=== PATIENT | male | born 1985 | race Caucasian/White ===

== ENCOUNTER 2018-04-08 13:38 | Emergency (ER) | payer BC, SELFPAY ==
[2018-04-08 14:11] VITALS: BP 139/84; PULSE 80; RESP 16; TEMP 36.8; O2SAT 98
[2018-04-08 15:19] VITALS: BP 119/73; PULSE 83; RESP 16; O2SAT 98
--- NOTE | 2018-04-08 15:24 | DI.RAD_ITS ---
SYMPTOMS/DIAGNOSIS: SNOWBOARDING ACCIDENT, ? BROKEN RIB PA AND LATERAL CHEST AND LEFT RIBS: PA and lateral chest and four additional views of the ribs were obtained. The heart is not enlarged and the lungs are clear. No pleural effusion or pneumothorax identified. No rib fracture seen.
--- NOTE | 2018-04-08 15:25 | ED.GENADUL_ITS ---
Discharge Plan Disposition Patient Disposition: HOME Condition: Fair Discharge Details Chief Complaint: Trauma Clinical Impression: Chest wall contusion Reason For Visit: broken rib? Primary Care Provider: Elisabet Guevara ED Provider: Veronica Hoang Home Meds and New Rx's Prescriptions: New ibuprofen 600 mg tablet 600 mg PO QID PRN (Reason: pain) Qty: 20 RF: 0 Discharge Instructions Instructions: Contusion in Adults (ED) Additional Instructions: Encourage hydration. Tylenol and/or ibuprofen as needed for discomfort. Encourage deep breathing and frequent ambulation to help open your lungs and prevent pneumonia. You may try topical options such as Lidoderm patch or Salonpas patches to help with discomfort. If you develop increased pain, shortness of breath, difficulty breathing, abdominal pain or other new/worsening symptoms please seek care urgently once again. Follow-up with primary care in 1-2 week if symptoms not improved Referrals: Elisabet Guevara MD [Primary Care Provider] - Discharge Data Discharge Date/Time-TO BE ENTERED AT DEPARTURE: 04/08/18 16:56 Medical Decision Making Patient 32-year-old male presenting today with chief complaint of left anterior chest wall pain after fall snowboarding today. States that he cannot manage falling forward. He indicates the left lower anterior ribs as area of his discomfort. States that initially, he felt slightly lightheaded he was concerned he may have puncture wound. Denies striking his head. No loss of consciousness. Was helmeted. Denies any headache, neck pain or back pain. No flank pain. Denies any nausea or vomiting. Denies any pain in his abdomen On exam, pain is localized to the left anterior lower ribs. No pain in the left upper quadrant. No CVA tenderness. No pain with movement of his back. Lungs are clear in all leroy. Abdomen soft nontender. No discoloration or evidence of trauma will obtain left-sided rib series to evaluate X-ray reviewed by radiologist no acute abnormalities noted Discussed the findings with patient. Advised chest wall contusion. Encouraged hydration. Encourage deep breathing. Discussed new/worsening symptoms when to seek care urgently once again. Patient lives locally and is able to return if she has recurrence or worsening of symptoms. All the questions and concerns were addressed and he is in agreement this plan HPI General Mode of arrival: ambulatory . Date/Time Provider Initiated Documentation: 04/08/18 15:18 . Limitations to Documentation: no limitations . Information obtained by: patient and family . History of Present Illness 32 year old M presents to the emergency department with the chief complaint of left anterior chest wall pain after fall, described as moderate, with intensity rated at 6. Quality is described as aching, and is localized to the chest. Patient reports no radiation. Patient started experiencing this hour(s) and it has been constant. Immobilization improves symptom(s), Movement worsens symptoms . Patient notes denies cough, diaphoresis, fever/chills, headaches, nausea/vomiting, rash, shortness of breath and syncope. Patient did receive the following treatments prior to arrival, none Related Data Home Medications Medication Instructions Recorded Confirmed ibuprofen 600 mg PO QID PRN #20 tab 04/08/18 Previous Rx's Medication Instructions Recorded ibuprofen 600 mg PO QID PRN #20 tab 04/08/18 Allergies Allergy/AdvReac Type Severity Reaction Status Date / Time No Known Allergies Allergy Unverified 02/26/13 02:59 General Stated Complaint: Trauma DC: 3 Review of Systems Constitutional Reports as per HPI, Denies chills, Denies fever(s), Denies headache(s), Denies lethargy and Denies poor appetite Eyes Denies change in vision ENT Denies headache(s) Cardiovascular Reports as per HPI, Denies dyspnea and Denies dyspnea on exertion Respiratory Denies dyspnea, Denies dyspnea on exertion and Denies wheezing Gastrointestinal Reports as per HPI, Denies abdominal pain, Denies diarrhea, Denies nausea and Denies vomiting Genitourinary Denies system reviewed and no additional complaints, except as docu (denies change in urinary habits) Musculoskeletal Reports as per HPI and Denies back pain Integumentary/Breasts Reports as per HPI and Denies rash Neurologic Denies headache(s) Allergic/Immunologic Denies wheezing FORMERLY [facility], 1928–1983 Social History Smoking/Tobacco Use Status: Current every day Exam Const General: cooperative, healthy appearing, comfortable, no acute distress and well developed Nutritional Appearance: average body habitus and well nourished Orientation: alert, awake and oriented x3 HENMT Head: normal to inspection Ears: hearing grossly normal bilaterally Mouth: moist mucous membranes Chest Chest: normal inspection of the chest, normal palpation of entire chest wall, no crepitus, localized rib tenderness with anteroposterior compression (over left anterior 8 and 9 ribs) and tenderness Resp Effort & Inspection: normal respiratory effort, able to speak in complete sentences and no respiratory distress Auscultation: clear to auscultation bilaterally, no rales, no rhonchi and no wheezes Cardio Rate: regular rate Rhythm: regular rhythm Heart Sounds: S1 normal and S2 normal GI Inspection: normal to inspection, no edema and non-distended Palpation: soft, no hepatosplenomegaly, not firm, no guarding, not rigid and nontender Auscultation: normal bowel sounds Back/Spine/Pelvis Back: no CVA tenderness Thoracic/Lumbar Spine: thoracic and lumbar spine normal to inspection Skin General skin exam: no rashes or lesions noted Trauma: no lacerations or abrasions Neuro General: alert, awake and oriented x3 Cognition: normal cognition Speech: speech normal Gait: normal gait Extrem General: normal to inspection, normal capillary refill, no pedal edema, no calf tenderness and normal gait Psych Appearance: grossly normal and well kempt Mental Status: mental status grossly normal Speech and Movement: speech and movement normal Course Vital Signs Temperature 36.8 C 04/08/18 14:11 Pulse 80 04/08/18 14:11 Respiratory Rate 16 04/08/18 14:11 Blood Pressure 139/84 04/08/18 14:11 Pulse Oximetry 98 04/08/18 14:11 Temperature 36.8 C 04/08/18 14:11 Pulse 83 04/08/18 15:19 Respiratory Rate 16 04/08/18 15:19 Respiratory Effort Accessory Muscle Use 04/08/18 14:16 Blood Pressure 119/73 04/08/18 15:19 Pulse Oximetry 98 04/08/18 15:19 Oxygen Delivery Method Room Air 04/08/18 15:19 Oxygen Flow Rate 0 04/08/18 15:19 Pain Level 6 04/08/18 14:11
[2018-04-08 16:55] VITALS: BP 123/77; PULSE 69; RESP 16; TEMP 36.8; O2SAT 96
== END 2018-04-08 16:56 | disposition home or self-care (01) ==
PROVIDERS: Emergency Provider Physician Assistant; PCP Family Medicine
DX: S20.212A Contusion of left front wall of thorax, initial encounter (principal); V00.311A Fall from snowboard, initial encounter
CPT/HCPCS: 99283; 71046; 71100; 99282

== ENCOUNTER 2019-11-18 15:49 | Outpatient (CLI) | payer BC, SELFPAY ==
--- NOTE | 2019-11-18 14:15 | DI.RAD_ITS ---
EXAM: XR SHOULDER LT COMPLETE 2+V CLINICAL HISTORY: L shoulder pain TECHNIQUE: COMPARISON: No exams were available for comparison FINDINGS: Three views were obtained. No bony or soft tissue abnormality seen. IMPRESSION:
== END 2019-11-18 16:09 ==
PROVIDERS: PCP Family Medicine; Referring Provider Family Medicine; Visit Provider Physician Assistant
DX: M25.512 Pain in left shoulder (principal)
CPT/HCPCS: 73030

== ENCOUNTER 2020-07-04 12:57 | Emergency (ER) | payer BC, SELFPAY ==
[2020-07-04] VITALS (50 sets, daily range): BP systolic 129–174; BP diastolic 66–112; PULSE 60–116; RESP 19–29; TEMP 37; O2SAT 93–98
--- NOTE | 2020-07-04 | DI.CT_ITS ---
EXAM: CT THORACIC LUMBAR SPINE REC CLINICAL HISTORY: requested by [facility] for pt transfered earlier today. TECHNIQUE: COMPARISON: No exams were available for comparison FINDINGS: Thoracic spine: There are fractures of the left 1st, 2nd, and 3rd ribs posteriorly noted in this pantera ent with left-sided pneumothorax and lung findings as described on the conventional CT scan report.. Thoracic spine: In the thoracic spine there are no compression fractures compression fractures. Some central disc ca lcification is noted 2 levels. Lumbar spine: No compression fractures. There is a finding on the anterosuperior aspect of L4 which has the appear ance of a limbus vertebra. No significant disc space narrowing. No jumped facets. No fractures. N o sacral fractures. 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 Recommend correlation with site of tenderness. Fractures of the left 1st, 2nd, and 3rd ribs. Ipsilateral pneumothorax another lung findings as desc ribed on the other report.
--- NOTE | 2020-07-04 13:15 | DI.CT_ITS ---
EXAM: CT HEAD CERVICAL SPINE WO CLINICAL HISTORY: snowboard injury, confusion. TECHNIQUE: Imaging Protocol: Axial computed tomography images with coronal and sagittal reformatted images were created and reviewed COMPARISON: No exams were available for comparison FINDINGS: BRAIN: There are no skull fractures nor fluid in the visualized paranasal sinuses. There is no evidence of intracranial hemorrhage, mass effect, or shift of midline structures. There are no extra-axial fluid collections. The ventricles are not enlarged or shifted and there is no blo od within the ventricular system nor within the basal cisterns. CERVICAL SPINE: There is a left lung pneumothorax. There are fractures of the left 1st, 2nd, and 3rd ribs which are partially included in the field of view. There is no evidence of fracture of the cervical vertebrae. No listhesis. No jumped facets. Degene rative disc disease evident at C5-6 and C6-7 levels.. No significant prevertebral soft tissue swelli ng. There is no significant facet joint malalignment. No significant osseous lesions evident. IMPRESSION: No acute intracranial findings on this noninfused CT scan of the brain. No evidence of cervical spine fracture, malalignment, nor acute compromise of the cervical spinal can al. However, there are fractures of at least the 1st 3 ribs on left side and a left pneumothorax is noted . RADIATION DOSE DELIVERED: 1,324.33mGy.cm Total DLP DATA REPOSITORY: All CT scans at this facility are submitted to the National Radiology Data Registry (NRDR) Dose Index Registry (DIR) with the [employer] (ACR). RADIATION OPTIMIZATION: All CT scans at this facility use at least one of these dose optimization te chniques: automated exposure control; mA and/or kV adjustment per patient size (includes targeted exa ms where dose is matched to clinical indication); or iterative reconstruction.
--- NOTE | 2020-07-04 13:15 | RT.EKG_ITS ---
APPROVED REPORT Exam: Resting ECG Patient Location: E HR:72 bpm ECG Measurements Heart Rate 72 AXIS MT 148 P 28 QRSd 107 QRS 70 QT 381 T 31 QTc 407 Conclusion Sinus rhythm... Atrial premature complexes
--- NOTE | 2020-07-04 13:30 | DI.CT_ITS ---
EXAM: CT CHEST/ABD/PEL W CLINICAL HISTORY: chest pain post fall yesterday snowboarding. TECHNIQUE: Imaging Protocol: Axial computed tomography images with coronal and sagittal reformatted images were created and reviewed CONTRAST MATERIAL: Intravenous: Omnipaque 350 Contrast volume:100 ml Oral: None COMPARISON: No exams were available for comparison FINDINGS: CHEST: LUNGS: There is a large left pneumothorax, approximately 60 percent. There fractures of the 1st, 2nd , and 3rd left ribs.. Also infiltrate and pleural fluid the left lung base. Opposite-right lung is relatively clear, with minimal increased markings in the posterior basal segment of the right lower l obe. No pleural effusion. No obvious pneumothorax on the right side. No focal findings in the main stem bronchi. Density in the right side of the trachea is probably mucus. MEDIASTINUM: There is no hilar nor mediastinal adenopathy. No prominent mediastinal hematoma. CARDIAC: Heart size is normal. There is no pericardial effusion.Thoracic aorta appears intact. OSSEOUS: Fractures of the 1st 2nd 3rd ribs on the left side. No sternal nor clavicular or scapular f ractures. No fractures of the thoracic vertebral bodies. . ABDOMEN: There is no ascites. No evidence of mesenteric nor bowel wall hematoma. No evidence of significant trauma to the spleen, liver, and kidneys. Abdominal aorta is intact. LIVER: There are no focal hepatic lesions nor dilatation of intrahepatic ducts. GALLBLADDER/BILIARY: No obvious gallbladder pathology. CBD is not dilated. PANCREAS: No evidence of pancreatic mass nor dilatation of the pancreatic duct. SPLEEN: Spleen is not enlarged. There are no intrasplenic lesions. Splenic and portal veins are sanabria nt. ADRENALS: There are no significant adrenal masses. KIDNEYS: No calculi nor hydronephrosis. No solid renal masses. No cysts evident. ABDOMINAL AORTA: Abdominal aorta is not enlarged. LYMPH NODES: There is no retroperitoneal nor paraaortic adenopathy. ABDOMINAL WALL/GI: No evidence of significant anterior abdominal wall hernia. No bowel obstruction. PELVIS: LYMPH NODES: There is no intrapelvic nor inguinal adenopathy. GI: No evidence of appendicitis.No evidence of sigmoid diverticulitis. URINARY BLADDER: No calculi nor masses evident REPRODUCTIVE: Age-appropriate OSSEOUS: Anterosuperior L4 vertebral body exhibits findings which are probably limbus vertebra. IMPRESSION: 1. No acute intra-abdominal trauma sequelae. No evidence of ascites/hemoperitoneum. 2. 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 Nevertheless, correlation with site of tenderness is recommended. This study 1st read by [facility]. RADIATION DOSE DELIVERED: 1,244.2mGy.cm Total DLP DATA REPOSITORY: All CT scans at this facility are submitted to the National Radiology Data Registry (NRDR) Dose Index Registry (DIR) with the [employer] (ACR). RADIATION OPTIMIZATION: All CT scans at this facility use at least one of these dose optimization te chniques: automated exposure control; mA and/or kV adjustment per patient size (includes targeted exa ms where dose is matched to clinical indication); or iterative reconstruction.
[2020-07-04 13:48] LABS: Abs Immature Grans 0.04 10^3/uL (0.0-0.06); Absolute Basophil Count 0.03 10^3/uL (0.0-0.2); Absolute Eosinophil Count 0.03 10^3/uL (0.0-0.7); Absolute Lymphocyte Count 1.76 10^3/uL (1.2-3.4); Absolute Monocyte Count 1.12 10^3/uL (0.1-0.8); Absolute Neutrophil Count 7.53 10^3/uL (1.2-6.7); Basophils % 0.3; Eosinophils % 0.3; HCT 41.7 % (40.0-50.0); HGB 14.3 g/dL (13.5-17.5); Immature Grans % 0.4; Lymphocytes % 16.7; MCH 30.6 pg (27.0-33.0); MCHC 34.3 % (32.0-36.0); MCV 89.3 fL (80-95); MPV 8.7 fL (8.0-11.0); Monocytes % 10.7; Neutrophils % 71.6; Nucleated RBC 0 %; Platelet Count 277 10^3/uL (130-400); RBC 4.67 10^6/uL (4.36-5.78); RDW 11.8 % (11.8-14.1); RDW-SD 38.3 fL; WBC 10.51 10^3/uL (4.4-10.8)
[2020-07-04 14:00] LABS: ALT 37 U/L (16-63); AST 45 U/L (15-37); Alkaline Phosphatase 72 U/L (46-116); Anion Gap 8.2 mmol/L (3-11); BUN 15 mg/dL (7-18); Bilirubin, Total 0.8 mg/dL (0.2-1.0); CO2 26.8 mmol/L (21.0-32.0); Calcium 8.8 mg/dL (8.5-10.1); Chloride 103 mmol/L (98-107); Glucose 108 mg/dL (74-106); Sodium 138 mmol/L (136-145); Total Protein 7.4 g/dL (6.4-8.2)
--- NOTE | 2020-07-04 14:24 | W.ED.GENAD ---
Discharge Plan Disposition Patient Disposition: [facility] Condition: Stable Discharge Details Clinical Impression: Pneumothorax on left Primary Care Provider: Gaby Reveles ED Provider: Molina Bird Home Meds and New Rx's Prescriptions: No Action dextroamphetamine-amphetamine [Adderall XR] 10 mg capsule,extended release 24hr 10 mg PO DAILY RF: 0 ibuprofen 600 mg tablet 600 mg PO QID PRN (Reason: pain) Qty: 20 RF: 0 Discharge Data Discharge Date/Time-TO BE ENTERED AT DEPARTURE: 07/04/20 18:08 Medical Decision Making <EDMUND Suarez - Last Filed: 07/07/20 08:20> Patient with stable vitals initially, diminished lung sounds on lung CT shows 50 to 60% hemothorax on left, 5% on the right with first and second posterior nondisplaced rib fractures No intra-abdominal pathology or CT head and cervical spine abnormality is Case discussed with Dr. Guillaume, surgeon on-call and she prefers that we transfer to higher level of care Dr. Tompkins, trauma surgeon at [facility] have accepted patient in transfer but asked that we please place a thoracotomy tube Patient is agreeable to transfer, he is alert, oriented, of decisional capacity at time of my evaluation and reevaluation, I confirmed prior to removing cervical collar Hemodynamically stable, pending chest tube placement, signed out to my attending physician pending chest x-ray and transport AST 45, no acute abnormalities Differential Diagnosis Differential Diagnosis: Pneumothorax, rib fractures, liver laceration, subdural hematoma Medical Records Medical records reviewed: Yes I reviewed the patient's medical records. <Molina Bird MD - Last Filed: 07/04/20 18:28> Received signout on the patient from Ms. Vallecillo, please see her note regarding details of his presentation, exam, plan of care. I agree with her plan including surgical consultation for chest tube placement, and transfer versus admission given traumatic injury to the chest. HPI <EDMUND Suarez - Last Filed: 07/07/20 08:20> This 40-year-old gentleman with history of ADHD presents with report of follow-up sobering yesterday afternoon. He was wearing a helmet when he went over a jump, he is unsure as to how he landed but has had, his partner told him that he did have loss of consciousness. He was able [place] reportedly. He denies any current headache. His partner reports that he has been confused . When asked how so, she states that he has been slowed in his responses which is unusual for him. He states that he felt weak this morning and has had worsening chest pain throughout the day. Patient denies any abdominal tenderness, history of coagulopathy, strength or sensation changes to extremities. He denies similar pain in the past. He denies any heart history. Pain is exacerbated with deep breathing reportedly. Denies any vomiting or blood in the stool. General Date/Time Provider Initiated Documentation: 07/04/20 13:22. Related Data Home Medications Medication Instructions Recorded Confirmed ibuprofen 600 mg PO QID PRN #20 tab 04/08/18 07/04/20 dextroamphetamine-amphetamine ER 10 mg PO DAILY 11/13/19 07/04/20 10 mg 24hr capsule,extend release Previous Rx's Medication Instructions Recorded ibuprofen 600 mg PO QID PRN #20 tab 04/08/18 Allergies Allergy/AdvReac Type Severity Reaction Status Date / Time No Known Allergies Allergy Verified 11/18/19 13:59 General Stated Complaint: Trauma DC: 2 <Molina Bird MD - Last Filed: 07/04/20 18:28> This 40-year-old gentleman with history of ADHD presents with report of follow-up sobering yesterday afternoon. He was wearing a helmet when he went over a jump, he is unsure as to how he landed but has had, his partner told him that he did have loss of consciousness. He was able to [place]board [place] the [place] reportedly. He denies any current headache. His partner reports that he has been confused . When asked how so, she states that he has been slowed in his responses which is unusual for him. He states that he felt weak this morning and has had worsening chest pain throughout the day. Patient denies any abdominal tenderness, history of coagulopathy, strength or sensation changes to extremities. He denies similar pain in the past. He denies any heart history. Pain is exacerbated with deep breathing reportedly. Denies any vomiting or blood in the stool. Review of Systems <EDMUND Suarez - Last Filed: 07/07/20 08:20> Narrative: Review of systems obtained x7 aside from where indicated in HPI PFSH <EDMUND Suarez - Last Filed: 07/07/20 08:20> Social History Smoking/Tobacco Use Status: Former Tobacco Use Smoking risk assessment performed?: Yes Drug use: Daily Substance use type: marijuana Current gender identity: male Do you feel safe in your relationship?: Yes Exam <EDMUND Suarez - Last Filed: 07/07/20 08:20> Const General: cooperative and no acute distress HENMT Other: No hemotympanum, uvula midline No visible signs of trauma Eyes Pupils: PERRL EOM: EOM intact bilaterally Neck Other: No midline tenderness, no visible sign of trauma Resp Effort & Inspection: normal respiratory effort and able to speak in complete sentences Cardio Rate: regular rate Rhythm: regular rhythm GI Other: No abdominal tenderness No CVA tenderness Back/Spine/Pelvis Other: No lumbar spine tenderness Neuro General: patient alert and patient oriented x3 Cranial Nerves: CN's II-XI intact bilaterally and PERRL Extrem General: normal to inspection Other: Neurovascularly intact distally Course <EDMUND Suarez - Last Filed: 07/07/20 08:20> Vital Signs Vital signs: Vital Signs Temperature 37 C 07/04/20 13:09 Pulse 66 07/04/20 13:09 Respiratory Rate 23 07/04/20 13:09 Blood Pressure 146/80 H 07/04/20 13:09 Pulse Oximetry 95 07/04/20 13:09 Temperature 37 C 07/04/20 13:09 Temperature Source Skin 07/04/20 13:09 Pulse 66 07/04/20 13:09 Respiratory Rate 23 07/04/20 13:09 Respiratory Effort Non-Labored 07/04/20 13:09 Blood Pressure 146/80 H 07/04/20 13:09 Blood Pressure Position Supine 07/04/20 13:09 Pulse Oximetry 95 07/04/20 13:09 Oxygen Delivery Method Room Air 07/04/20 13:09 Oxygen Flow Rate 0 07/04/20 13:09 Pain Level 10 07/04/20 13:09 Lab/Test Results Lab/Test Results: Laboratory Tests Range/Units 07/04/20 07/04/20 07/04/20 13:29 13:40 13:40 WBC (4.4-10.8) 10^3/uL 10.51 RBC (4.36-5.78) 10^6/uL 4.67 Hgb (13.5-17.5) g/dL 14.3 Hct (40.0-50.0) % 41.7 MCV (80-95) fL 89.3 MCH (27.0-33.0) pg 30.6 MCHC (32.0-36.0) % 34.3 RDW (11.8-14.1) % 11.8 Plt Count (130-400) 10^3/uL 277 MPV (8.0-11.0) fL 8.7 Immature Gran % 0.4 Neutrophils % 71.6 Lymphocytes % 16.7 Monocytes % 10.7 Eosinophils % 0.3 Basophils % 0.3 Nucleated RBC % % 0 Absolute Neutrophils (1.2-6.7) 10^3/uL 7.53 H Absolute Lymphocytes (1.2-3.4) 10^3/uL 1.76 Absolute Monocytes (0.1-0.8) 10^3/uL 1.12 H Absolute Eosinophils (0.0-0.7) 10^3/uL 0.03 Absolute Basophils (0.0-0.2) 10^3/uL 0.03 Sodium (136-145) mmol/L 138 Potassium (3.5-5.1) mmol/L 4.0 Chloride (98-107) mmol/L 103 Carbon Dioxide (21.0-32.0) mmol/L 26.8 Anion Gap (3-11) mmol/L 8.2 BUN (7-18) mg/dL 15 Creatinine (0.70-1.30) mg/dL 1.0 Estimated GFR/1.73 m2 (mL/min/1.73m2) >= 60.00 Glucose (74-106) mg/dL 108 H Calcium (8.5-10.1) mg/dL 8.8 Magnesium Cancelled Total Bilirubin (0.2-1.0) mg/dL 0.8 AST (15-37) U/L 45 H ALT (16-63) U/L 37 Alkaline Phosphatase (46-116) U/L 72 Total Protein (6.4-8.2) g/dL 7.4 Albumin (3.4-5.0) g/dL 4.0 Sign Out <EDMUND Suarez - Last Filed: 07/07/20 08:20> Sign Out Data: Sign Out Comment: pending thoracotomy tube/cxr and transfer to ER/ Dr Tompkins Last updated by Sarai Vallecillo PA at 07/04/20 17:04
[2020-07-04] MEDS: fentaNYL 100 MCG/2 ML VIAL 50 MCG IVP (14:40)
[2020-07-04] MEDS: Omnipaque 350 MG/ML 100 ML BTL IV (14:58)
--- NOTE | 2020-07-04 15:19 | DI.VRAD_ITS ---
PROCEDURE INFORMATION: Exam: CT Head Without Contrast Exam date and time: 07/04/2020 1:32 PM Age: 34 years old Clinical indication: Other: Snowboard injury, confusion TECHNIQUE: Imaging protocol: Computed tomography of the head without contrast. Radiation optimization: All CT scans at this facility use at least one of these dose optimization techniques: automated exposure control; mA and/or kV adjustment per patient size (includes targeted exams where dose is matched to clinical indication); or iterative reconstruction. COMPARISON: No relevant prior studies available. FINDINGS: Brain: Normal. No hemorrhage. Unremarkable white matter. No mass effect. Cerebral ventricles: No ventriculomegaly. Bones/joints: Unremarkable. No acute fracture. Paranasal sinuses: There is mild mucosal thickening in the bilateral frontal sinuses, anterior ethmoidal air cells, right greater than left. Mastoid air cells: The mastoid air cells are clear. Soft tissues: There is mild soft tissue swelling in anterior frontal scalp. IMPRESSION: No acute intracranial abnormality. PROCEDURE INFORMATION: Exam: CT Cervical Spine Without Contrast Exam date and time: 07/04/2020 1:32 PM Age: 34 years old Clinical indication: Other: Snowboard injury, confusion TECHNIQUE: Imaging protocol: Computed tomography images of the cervical spine without contrast. Radiation optimization: All CT scans at this facility use at least one of these dose optimization techniques: automated exposure control; mA and/or kV adjustment per patient size (includes targeted exams where dose is matched to clinical indication); or iterative reconstruction. COMPARISON: No relevant prior studies available. FINDINGS: Bones/joints: There is no acute fracture or subluxation. Craniocervical junction is normal. There is normal alignment. Vertebral body heights are maintained. Posterior elements are intact. Facets are normally located. Discs/Spinal canal/Neural foramina: There is mild narrowing of C5-C6 and C6-C7 intervertebral disc space. There is mild posterior osteophyte spurring at C5-C6. Prevertebral Space: There is no prevertebral and posterior paraspinal soft tissue swelling. Trachea: There is a minimal debris or mucous retention cyst within the trachea. Lungs: Lung apices are normal. Pleural spaces: There is a partially visualized pneumothorax in the left apical lung. Soft tissues: Unremarkable. IMPRESSION: 1. No acute fracture or subluxation of the cervical spine. 2. Partially visualized pneumothorax in the left lung. CT correlation is recommended. Dictated and Authenticated by: Levi Cavazos MD. Ordering:JOI Moon MD
--- NOTE | 2020-07-04 15:39 | DI.VRAD_ITS ---
Addendum created by Levi Cavazos DO on 07/04/2020 3:39:53 PM EDT: THIS REPORT CONTAINS FINDINGS THAT MAY BE CRITICAL TO PATIENT CARE. The findings were verbally communicated via telephone conference at 3:39 PM EDT on 07/04/2020 with Sarai Vallecillo. The findings were acknowledged and understood. Initial report created on 07/04/2020 3:38:54 PM EDT: PROCEDURE INFORMATION: Exam: CT Chest With Contrast; Diagnostic Exam date and time: 07/04/2020 2:48 PM Age: 34 years old Clinical indication: Injury or trauma; Fall; Upper; Blunt trauma (contusions or hematomas); Additional info: Snowboard injury, confusion TECHNIQUE: Imaging protocol: Diagnostic computed tomography of the chest with contrast. COMPARISON: CR XR ribs LT w PA lat chest 04/08/2018 3:37 PM FINDINGS: Lungs: See Pleural spaces finding. Pleural spaces: Pleural spaces and lungs: There is a large left pneumothorax, probably 50-60%. There is a layering mild hyperdense fluid in the left pleural cavity, reflecting hemothorax. There is overlying lung atelectasis of the left lower lung lobe and to a lesser extent left upper lobe. There is trace right pneumothorax , most pronounced anterior laterally. There is posterior atelectasis of the right lung . Heart: Heart is within normal limits in size and in the midline. Mediastinal space: There is mild debris in trachea. Aorta: Unremarkable. No aortic aneurysm. Lymph nodes: Unremarkable. No enlarged lymph nodes. Bones/joints: There is a nondisplaced fracture of the left 1st posterior rib (image 5 series 4). There is a nondisplaced fracture of the 2nd posterior left rib (image 7 series 4). Soft tissues: Unremarkable. IMPRESSION: 1. Large left pneumothorax, approximately 50-60% with mild hemothorax and associated atelectasis of the left lung, lower lobe greater than the upper lobe. There is no shift of the mediastinum , probably due to associated atelectasis in the left lung. 2. There is trace right pleural pneumothorax, less than 5%. 3. Nondisplaced fracture of posterior left 1st and the 2nd ribs. PROCEDURE INFORMATION: Exam: CT Abdomen And Pelvis With Contrast Exam date and time: 07/04/2020 2:48 PM Age: 34 years old Clinical indication: Injury or trauma; Fall; Upper; Blunt trauma (contusions or hematomas); Additional info: Snowboard injury, confusion TECHNIQUE: Imaging protocol: Computed tomography of the abdomen and pelvis with contrast. COMPARISON: CR XR ribs LT w PA lat chest 04/08/2018 3:37 PM FINDINGS: Liver: Normal. No mass. Gallbladder and bile ducts: Normal. No calcified stones. No ductal dilation. Pancreas: Normal. No ductal dilation. Spleen: Normal. No splenomegaly. Adrenal glands: Normal. No mass. Kidneys and ureters: Normal. No hydronephrosis. Stomach and bowel: There is diverticulosis of sigmoid and descending colon without acute inflammation. Appendix: No evidence of appendicitis. Intraperitoneal space: Unremarkable. No free air. No significant fluid collection. Vasculature: Unremarkable. No abdominal aortic aneurysm. Lymph nodes: Unremarkable. No enlarged lymph nodes. Urinary bladder: Unremarkable as visualized. Reproductive: Unremarkable as visualized. Bones/joints: There is a small avulsion fracture of the anterior tip of L4. The pelvic rim is intact. Soft tissues: Unremarkable. Other findings: Images are degraded due to motion. IMPRESSION: 1. Mildly degradation of images due to motion. 2. No acute intra-abdominal abnormality. No intra-abdominal hematoma. 3. Small avulsion fracture of the anterior superior endplate of L4. The pelvic rim is intact. Dictated and Authenticated by: Levi Cavazos MD. Ordering:JOI Moon MD
--- NOTE | 2020-07-04 16:41 | NUR.NOTE ---
Pt girlfriend allowed in to room with pt at triage, had stated pt was concussed and unable to answer questions. Pt is alert, oriented, able to make needs known. Advised girlfriend that we are not allowing visitors, and she would need to go wait in car. Stated she is concerned that pt is unable to advocate for himself and wanted to stay with pt. Again advised of visitor policy, that we could call her with any updates and questions. Sarai SHAFFER in agreement. in to update pt and girlfriend of plan, girlfriend exited ED to wait outside.
--- NOTE | 2020-07-04 16:45 | DI.RAD_ITS ---
EXAM: XR PORTABLE CHEST AP CLINICAL HISTORY: trauma. TECHNIQUE: 2D digital imaging was performed. COMPARISON: CR XR ribs LT w PA lat chest from 04/08/2018 CT scan earlier same date. FINDINGS: Compared to CT scan earlier today there has been interval placement of a large caliber left chest tub e and left lung appears mostly re-expanded with no obvious pneumothorax evident on this portable semi -upright view. Mild increased markings in left lung base. Heart and mediastinum are not shifted. No prominent infiltrates. No large pleural effusions. IMPRESSION: Left chest tube in place. Left lung is re-expanded. DATA REPOSITORY: RADIATION DOSE DELIVERED:
--- NOTE | 2020-07-04 17:00 | NUR.NOTE ---
Nursing Note: Chante [phone]
[2020-07-04] MEDS: Lactated Ringers 1,000 ML 150 ML IV (17:31)
--- NOTE | 2020-07-04 17:37 | W.SURGCON ---
Date of service: 07/04/20 Time of Service: 17:04 Assessment and Plan Assessment and plan (1) Traumatic pneumohemothorax: Status: Acute Assessment and plan: 1) chest tube in place, confirmed 2) keep to 20cm H20 Qualifiers: Encounter type: initial encounter Qualified Code(s): S27.2XXA - Traumatic hemopneumothorax, initial encounter (2) Multiple rib fractures involving first rib: Status: Acute Assessment and plan: 2/2 mechanism and multiple system injury, patient will transfer to trauma center History of Present Illness History of Present Illness Chief Complaint: chest pain Narrative: patient had fall while snowboarding yesterday. Painful at time, but worsening chest pain on the left and shortness or breath overnight into today. Patient c/o worsening pain with movement, worse with deep breath. Remaining still makes it better. no prior history. CT shows multiple rib fx and pneumo/hemothorax on L. Review of Systems Constitutional Constitutional: Denies fever(s), Denies headache(s) and Denies weight loss Eyes Eyes: Denies change in vision and Denies loss of vision ENT Ears, Nose, Mouth, and Throat: Denies abnormal hearing, Denies dizziness and Denies headache(s) Cardiovascular Cardiovascular: Reports as per HPI, Denies syncope, Denies rapid heart rate, Denies palpitations and Reports dyspnea Respiratory Respiratory: Reports pain on inspiration and Reports dyspnea Gastrointestinal Gastrointestinal: Denies abdominal pain and Denies diarrhea Genitourinary Genitourinary: Denies oliguria and Denies difficulty urinating Musculoskeletal Musculoskeletal: Denies deformity and Denies radiating pain into limb Integumentary/Breasts Skin/Breast: Denies rash and Denies skin ulcer Neurologic Neurologic: Denies abnormal hearing, Denies abnormal speech, Denies confusion, Denies dizziness, Denies syncope, Denies headache(s) and Denies loss of vision Psychiatric Psychiatric: Denies anxiety, Denies confusion and Denies depression Endocrine Endocrine: Denies palpitations Hematologic/Lymphatic Hematologic/Lymphatic: Denies easy bleeding and Denies easy bruising [facility] Social History Smoking/Tobacco Use Status: Former Tobacco Use Smoking risk assessment performed?: Yes Drug use: Daily Substance use type: marijuana Current gender identity: male Do you feel safe in your relationship?: Yes Exam Narrative Exam Narrative: NAD RRR S1S2 CTA R, Decreased L No joint deformity No extremity tenderness No cervical tenderness S/ND/NT abdomen Results Last Vital Signs Temp 98.6 F 07/04/20 13:09 Pulse 64 07/04/20 16:01 Resp 26 H 07/04/20 17:23 BP 130/72 07/04/20 16:01 Pulse Ox 98 07/04/20 17:23 Labs Result diagrams: 07/04/20 13:40 07/04/20 13:40 Labs: Laboratory Results - last 24 hr 07/04/20 07/04/20 07/04/20 13:29 13:40 13:40 WBC 10.51 RBC 4.67 Hgb 14.3 Hct 41.7 MCV 89.3 MCH 30.6 MCHC 34.3 RDW 11.8 Plt Count 277 MPV 8.7 Immature Gran % 0.4 Neutrophils % 71.6 Lymphocytes % 16.7 Monocytes % 10.7 Eosinophils % 0.3 Basophils % 0.3 Nucleated RBC % 0 Absolute Neutrophils 7.53 H Absolute Lymphocytes 1.76 Absolute Monocytes 1.12 H Absolute Eosinophils 0.03 Absolute Basophils 0.03 Sodium 138 Potassium 4.0 Chloride 103 Carbon Dioxide 26.8 Anion Gap 8.2 BUN 15 Creatinine 1.0 Estimated GFR/1.73 m2 >= 60.00 Glucose 108 H Calcium 8.8 Magnesium Cancelled Total Bilirubin 0.8 AST 45 H ALT 37 Alkaline Phosphatase 72 Total Protein 7.4 Albumin 4.0 Procedures Chest Tube Chest Tube 1: Chest tube location: Lateral Chest Size of tube: 24 Chest tube procedure: Yes betadine prep and sterile drapes applied Tube sutured to skin: Yes Sterile dressing applied: Yes Anesthesia: 1% Lidocaine w/ Epi Volume anesthetic (ml): 20 Incision made with: #11 blade Post procedure: sutured to skin and sterile dressing applied Osei of air heard: Yes Tube Drainage: fluid Amount of initial drainage (ml): 30 Post procedure CXR?: Yes Patient tolerated procedure: Yes Progress: patient tolerated procedure well, confirmed placement with CXR, patient to be transferred to [facility]
--- NOTE | 2020-07-04 17:41 | DI.VRAD_ITS ---
PROCEDURE INFORMATION: Exam: XR Chest Exam date and time: 07/04/2020 4:50 PM Age: 34 years old Clinical indication: Device placement; Chest tube TECHNIQUE: Imaging protocol: XR of the chest Views: 1 view. COMPARISON: CT CHEST/ABD/PEL W 07/04/2020 2:50 PM FINDINGS: Lungs and pleura: Lungs volumes are low. There has been interval placement of left chest tube in the basilar lung. There is probable pleural line in the left apical lung. There is no mass effect. Redemonstration of opacities in the left lower lung, probably reflecting pleural effusion and or atelectasis. Left lung volume is low. No radiographic pneumothorax is identified in the right lung. Heart/Mediastinum: No cardiomegaly. Bones/joints: Redemonstration of the nondisplaced fracture of posterior 2nd left rib. Soft tissues: Soft tissues are unremarkable. IMPRESSION: 1. Interval placement of the left chest tube which projects over left basilar hemithorax. There has been near resolution of left pneumothorax with questionable small pneumothorax in the left apical lung. Left lung volume is low with no mass effect on the mediastinum. 2. Opacities in the left lower lung reflect mild left pleural effusion with overlying atelectasis. Dictated and Authenticated by: Levi Cavazos MD. Ordering:JOI Moon MD
== END 2020-07-04 18:08 | disposition short-term general hospital (02) ==
PROVIDERS: Physician Assistant; Emergency Provider Emergency Medicine; PCP Family Medicine
DX: S27.2XXA Traumatic hemopneumothorax, initial encounter (principal); S22.42XA Multiple fractures of ribs, left side, initial encounter for closed fracture; W18.09XA Striking against other object with subsequent fall, initial encounter; Y93.23 Activity, snow (alpine) (downhill) skiing, snowboarding, sledding, tobogganing and snow tubing; R41.0 Disorientation, unspecified
CPT/HCPCS: 32551; 74177; 80053; 93005; 96361; 96374; 96375; 96376; 99253; 99285; 70450; 71045; 71260; 72125; 83735; 85025; 93010; 99284; J3010; J3490

== ENCOUNTER 2021-01-19 09:18 | Outpatient (CLI) | payer BC, SELFPAY ==
--- NOTE | 2021-01-19 08:00 | DI.RAD_ITS ---
Exam(s) XR SHOULDER LT COMPLETE 2+V EXAM: XR SHOULDER LT COMPLETE 2+V CLINICAL HISTORY: left shoulder f/u. TECHNIQUE: 2D digital imaging was performed of the left shoulder. Two images were obtained. Y-view and AP views were obtained. COMPARISON: CR XR SHOULDER LT COMPLETE 2+V from 11/18/2019 FINDINGS: BONES: No acute fracture is present. No bony destructive lesion is seen. There osseous density seen i nferior to the distal left clavicle. There of uncertain acuity. They do not appear present on the p rior examination from 11/18/2019. JOINTS: No dislocation present. SOFT TISSUE: Normal. IMPRESSION: Osseous densities inferior to the distal left clavicle. They are of indeterminate acuity. Dystrophi c calcification versus fracture. Please correlate clinically. DATA REPOSITORY: RADIATION DOSE DELIVERED:
== END 2021-01-19 09:19 | disposition home or self-care (01) ==
LOC: DIORS 09:18
PROVIDERS: PCP Family Medicine; Referring Provider Family Medicine; Visit Provider Student in an Organized Health Care Education/Training Program
DX: S43.432A Superior glenoid labrum lesion of left shoulder, initial encounter (principal); M25.812 Other specified joint disorders, left shoulder
CPT/HCPCS: 73030

== ENCOUNTER 2021-02-09 04:12 | Outpatient (CLI) | payer BC, SELFPAY ==
[2021-02-09 10:18] LABS: Source Nasal/Nares
[2021-02-09 15:19] LABS: COVID-19 PCR Negative (Negative)
== END 2021-02-09 04:13 | disposition home or self-care (01) ==
LOC: LBO 04:13
PROVIDERS: PCP Family Medicine; Visit Provider Student in an Organized Health Care Education/Training Program
DX: Z20.822 Contact with and (suspected) exposure to COVID-19 (principal); Z01.818 Encounter for other preprocedural examination
CPT/HCPCS: 87635

== ENCOUNTER 2021-02-11 08:51 | Day surgery (SDC) | payer BC, SELFPAY ==
[2021-02-11] VITALS (10 sets, daily range): BP systolic 116–141; BP diastolic 67–99; PULSE 53–75; RESP 12–16; TEMP 36.1–36.7; O2SAT 97–100; BMI 27.9
--- NOTE | 2021-02-11 07:58 | W.ANESPRE ---
General Info Date of Service Date Performed: 02/11/21 Height: 5 ft 8 in Weight: 83.461 kg Body Mass Index (BMI): 27.9 Surgical Procedure: Operation Date: 02/11/21 09:55 Proposed Procedures Side Surgeon p Shoulder Arthroscopy WITH extensive debridement,subacromial decompression and distal clavicle exc Left Yogi Luna MD s Shoulder Bicep Tenodesis Left Yogi Luna MD Meds Allergies and Home Medications Allergies Allergy/AdvReac Type Severity Reaction Status Date / Time No Known Allergies Allergy Verified 02/11/21 09:19 Home Medication Medication Instructions Recorded ibuprofen 600 mg PO QID PRN #20 tab 04/08/18 dextroamphetamine-amphetamine ER 10 mg PO DAILY 11/13/19 10 mg 24hr capsule,extend release melatonin 5 mg PO DAILY 02/09/21 Current Visit Medications: Current Medications Generic Name Dose Route Start Last Admin Trade Name Freq PRN Reason Stop Dose Admin Ringer's Solution 1,000 mls @ 100 mls/hr 02/11/21 06:00 IV 03/12/21 23:59 INFUSION JANE Cefazolin Sodium/Dextrose 2 gm in 50 mls @ 100 mls/hr 02/11/21 06:00 Ancef Duplex IVPB 03/12/21 23:59 PREOP JANE IV Miscellaneous Supplies 1 each 02/11/21 06:00 Iv Access IV 03/12/21 23:59 DIRECTED JANE Naproxen 250 - 500 mg 02/11/21 07:33 Naproxen 500 Mg Tab PO BID PRN PRN Oxycodone HCl 5 - 10 mg 02/11/21 07:33 Oxycodone 5 Mg Tab PO Q4H PRN PRN Sodium Chloride 0 ml 02/11/21 06:00 Normal Saline Flush 10 Ml Syr IV 03/12/21 23:59 PRN PRN Sodium Chloride 0 ml 02/11/21 06:00 Normal Saline 10 Ml Vial IJ 03/12/21 23:59 DIRECTED PRN Sterile Water 0 ml 02/11/21 06:00 Water,Injection,Sterile 10 Ml Vial IJ 03/12/21 23:59 DIRECTED PRN PFSH Active Problems Active Problems: Problem Status Onset Code Separation of left acromioclavicular joint, type 2 S43.102A Superior labrum [id number] (SLAP) tear of left shoulder S43.432A Biceps tendonitis on left M75.22 Traumatic pneumohemothorax S27.2XXA Multiple rib fractures involving first rib S22.49XA Pneumothorax on left J93.9 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 Medical History Medical History ADHD Surgical History Surgical History Hx of tonsillectomy Tobacco Smoking/Tobacco Use Status: Current every day Tobacco Type: smokeless tobacco Substance Use Substance use: Daily Substance use type: marijuana Vital Signs and Lab Results Vital Signs Most Recent Vital Signs in EMR: Temp Pulse Resp BP Pulse Ox 36.3 C L 75 16 138/80 97 02/11/21 09:13 02/11/21 09:13 02/11/21 09:13 02/11/21 09:13 02/11/21 09:13 Lab Results Blood Type / Crossmatch: No Data to Display Complete Blood Count: No Data to Display Complete Metabolic Panel: No Data to Display Liver Function Panel: No Data to Display Coagulation Panel: No Data to Display Cardiac Panel: No Data to Display Arterial Blood Gas: No Data to Display Venous Blood Gas: No Data to Display Pancreas Panel: No Data to Display Thyroid Panel: No Data to Display Infectious Disease: Coronavirus (COVID-19)(PCR) Negative (Negative) 02/09/21 09:05 02/09/21 Coronavirus 2019 Source Nasal/Nares 02/09/21 09:05 02/09/21 Blood Cultures: No Data to Display Toxicology Panel: No Data to Display Imaging and Studies Imaging and Studies EKG Summary: 07/04/2020: Exam: Resting ECG Patient Location: E HR:72 bpm ECG Measurements Heart Rate 72 AXIS NM 148 P 28 QRSd 107 QRS 70 QT 381 T31 QTc 407 Conclusion Sinus rhythm... Atrial premature complexes I have reviewed and I agree with the emergency room physician's ECG interpretation. Anesthesia Assessment and Plan Anesthesia History Personal History: No History of Anesthesia Complications Family History: No Family History of Anesthesia Complications Exercise Tolerance Exercise Tolerance: Metabolic Equivalents>4 Cardiac & Pulmonary Exam Cardiac Exam: Normal S1/S2 Heart Sounds Pulmonary Exam: Clear Bilateral Breath Sounds Airway Exam Known Difficult Airway: No Mallampati Class: 1 Mouth Opening: Normal (> 3cm) Thyromental Distance: Greater than 3 cm Neck Range of Motion: Full ROM Neck Circumference: Normal Teeth Condition: Loose or Chipped ASA Classification ASA Score: ASA 2 Emergency Case?: No NPO Status NPO Status: NPO Clears >2 hours, Solids >8 hours Anesthesia Plan Resuscitation Status: Full Code Anesthesia Technique: General Anesthesia Airway Planned: Endotracheal Tube Pain Management: Surgeon and patient request nerve block Monitors Used: Standard Monitors
[2021-02-11] MEDS: Lactated Ringers 1,000 ML 100 ML IV (09:45)
--- NOTE | 2021-02-11 11:34 | ROE_ITS ---
Date of service: 02/11/21 Time of Service: 12:00 Operative Note Operative Note DATE OF PROCEDURE: 02/11/21 PRE-OP DIAGNOSIS: Left: 1. SLAP tear 2. Bursitis 3. AC joint pain POST-OP DIAGNOSIS: same PROCEDURE: Left: 1. Arthroscopic biceps tenodesis, CPT# 08664. This involved arthroscopically suturing and reattaching the long head of the biceps tendon to the proximal humerus at the superior margin of the bicipital groove with a screw at the correct tension. 2. Arthroscopic distal clavicle excision, CPT# 86000. This involved arthroscopically exposing the underside of the acromioclavicular joint, smoothing out bone spurs, and removing post-traumatic changes so there was no bone left engaging the acromion. 3. Extensive debridement, CPT# 22849. This involved using arthroscopic hand instruments, power instruments, and radiofrequency instruments to release the long head of the biceps tendon and debride areas of labral tearing, synovitis, and chondromalacia about the anterior inferior glenoid working within the glenohumeral joint anteriorly, superiorly and posteriorly. 4. Subacromial decompression with partial acromioplasty, CPT# 13850. This involved using arthroscopic power instruments and a radiofrequency wand to complete a bursectomy and remove bone spurs on the undersurface of the acromion. The health care legal assistant was medically required in order to help assist in techniques a yandel, which require positioning the arm, holding the arthroscope, and manipulating multiple instruments and sutures at the same time. This cannot be done without the help of an experienced health care legal assistant. SURGEON: Yogi Luna COGNOS REPORT DEVELOPER: Monika Galvez ANESTHESIA TYPE: Local By Surgeon, General LMA/ETT and Primary Nerve Block Refer to Anesthesia Record ESTIMATED BLOOD LOSS: 15 PATHOLOGY: none sent COMPLICATIONS: None Patient was transported to: PACU Patient's condition: stable Implants: Arthrex: Knotless 4.75mm SwiveLocks x 1 Indications: The patient was diagnosed with the above conditions and appropriately indicated for surgical intervention. Please see complete medical record for details. Findings: Exam under anesthesia: Full range of motion, no anterior or posterior instability. Glenohumeral joint: Significant SLAP tear with complete involvement of the biceps tendon anchor, which was inserted anterior to 12:00. Anterior inferior chondromalacia with adjacent labral thinning but no labral detachment from the glenoid. Completely intact rotator cuff. Small posterior glenoid chondromalacia as well with intact labrum. Biceps tendon intra-articular segment as well as retracted portion from the groove without pathology. Subacromial space: Significant bursitis. Intact rotator cuff. Minimal undersurface acromial bone spur. Scar tissue and fibrinous loose bodies AC joint without any significant impinging distal clavicle on acromion. Procedure Description: In the operating room, general anesthesia was induced. Bilateral shoulders were examined. The patient was positioned in the beachchair position. All bony prominences were well-padded. Preoperative antibiotics were administered. The shoulder was prepped and draped in the usual sterile fashion. The correct patient, procedure, and side of the procedure were all verified prior to incision. 10 cc of 0.5% bupivacaine containing epinephrine was infiltrated about the planned anterior and posterior portal sites. Starting through the posterior portal a standard complete diagnostic arthroscopy was performed of the glenohumeral joint including inspection of the long head of the biceps, anterior and superior labrum, subscapularis tendon, supraspinatus and infraspinatus tendons, and axillary recess. The glenoid and humeral head cartilage as well as the posterior labrum were inspected from an anterior viewing portal. Significant findings and interventions noted above. Notably, there was evidence of prior trauma to the glenohumeral joint with subluxation versus near?dislocation especially considering the thinning and fraying of the anterior and anterior-inferior labrum and damage chondromalacia to the adjacent cartilage. The cartilage had loose flap ends which were minimally debrided with a mechanical shaver to preserve as much viable cartilage as possible. The anterior labrum was probed and felt to be stable to the glenoid rim and did not require repair so it was debrided again only as much as necessary to remove frayed and pathologic tissue working from anterior. The SLAP tear was significantly mobile with near complete detachment of the biceps tendon anchor. The rasp was used to prepare the superior aspect of the glenoid and undersurface of the labrum to optimize chance of scarring in and healing. The posterior labrum only required mild debridement as well and there was no cartilage to debride posteriorly. A rigid cannula was inserted anteriorly for planned arthroscopic biceps tenodesis given excellent quality of the intra-articular and visible aspect of the biceps tendon with pain felt largely be due to the significant type 2 SLAP tear that could almost be bucket-handle into the joint. An all-arthroscopic suprapectoral biceps tenodesis was performed through an anterior portal using a Loop N Tack method with a SutureTape FiberLink cinched around and through the tendon. The biceps was tenotomized from the labrum and fixated with a 4.75 mm knotless SwiveLock suture anchor at the superior margin of the bicipital groove. The appropriate location for repair just beneath the biceps tendon sling was prepared for healing with the rasp. Biceps tendon stump was mushroomed with the radiofrequency ablator. The biceps tendon anchor was appropriately contoured with a shaver and ablator to the superior labrum. The knotless repair stitch was then used to augment the repair given young age and high activity level the patient bypassing around the biceps tenodesis stump just past the link cinch before shuttling the repair suture back through the anchor and appropriately tightening the knotless mechanism. The biceps tendon had excellent fixation strength through probing and elbow extension with shoulder forward elevation. Glenohumeral joint was drained of arthroscopic fluid. The arthroscope was redirected from posterior into the subacromial space. There was significant bursitis. The anterior portal was directed also into the subacromial space and bursectomy performed operating with mechanical shaver and radiofrequency ablator exposing the undersurface of the acromion. The mechanical shaver was used to coplane and remove undersurface acromial bone near the AC joint. There was significant posttraumatic scar tissue at the AC joint as well. Once this tissue was removed and joint was exposed with a radiofrequency ablator, the mechanical shaver was used to remove multiple loose bodies from this joint possibly relating to the AC joint meniscus or cartilage tissue that had been injured in the prior shoulder separation. There was no significant distal clavicle bone impinging on the acromion so distal clavicle bone was removed and no additional anterior posterior superior capsule was violated to preserve scarred and healed shoulder separation distal clavicle stability. The bursectomy was carried more centrally over the rotator cuff and the undersurface acromion did not require any acromioplasty. Pathologic bursa was removed extending laterally, the arm positioned in internal and external rotation to aid in bursectomy, and there was no rotator cuff tearing. The lateral 50 yard line portal was omitted. The subacromial space was drained of arthroscopic fluid. Both portal sites were copiously irrigated. These incisions were closed using 3-0 Monocryl in a buried fashion and then covered with Mastisol, Steri-Strips, Xeroform, dry gauze, and ABDs. The dressings were covered and secured with Medipore tape. The operative extremity was placed into a sling for immobilization. The patient awoke from anesthesia without complication and was transferred to the recovery room in a stable condition.
[2021-02-11] MEDS: ceFAZolin 2 GM/50 ML BAG IVPB (11:43)
--- NOTE | 2021-02-11 12:16 | W.ANESNERVE ---
Nerve Block Single Injection Procedure Date and Time Date Performed: 02/11/21 Procedure Start: 10:50 Location Where Procedure Performed Procedure Location: Day Surgery Unit Reason Performed: Postoperative Analgesia Requesting Provider: Yogi Luna Timeout Performed Timeout Performed: Yes Monitoring Used ECG, Blood Pressure, SpO2 and See EMR for corresponding vital signs Sterility Sterility: Hand Hygiene, Surgical Cap, Surgical Mask, Sterile Gloves, Eye Protection and Chlorhexidine Sedation Given During Procedure Sedation Given (Indicate Dose Given): Versed IV Dose:: 2 mg Patient Mental Status Patient Mental Status: Awake Nerve Block 1st Nerve Block: Laterality: Left Block Type: Interscalene Needle / Catheter Used: 80mm SonoPlex II Local Anesthetic Bolus (Indicate Dose Given): Lidocaine used for local infiltration of skin, Injected in 3-5ml increments after negative blood aspiration, Bupivacaine 0.5% Dose:: 15 mL and Exparel Dose:: 10 mL Additives (Indicate Dose Given): None Ultrasound: Sterile probe cover and gel used Ultrasound Image Saved?: Yes Nerve Stimulator: Not Used Paresthesia: None Procedure Tolerated: No Complications Procedure Outcome: Successful (Difficult anatomy, discussed with patient prior to and following block for possibility of partial coverage secondary to limited LA spread. Patient verbalizes understanding.) Performed By: Yumiko Diaz
--- NOTE | 2021-02-11 13:12 | PDOC.DSDIS_ITS ---
Discharge Plan Disposition Patient Disposition: HOME Condition: Stable Discharge Details Reason For Visit: Left shoulder surgery Attending Provider: Yogi Luna Primary Care Provider: Gaby Reveles Home Meds and New Rx's Prescriptions: New aspirin 81 mg tablet,delayed release (DR/EC) 81 mg PO DAILY 14 Days Qty: 14 RF: 0 naproxen 250 mg tablet 250 - 500 mg PO BID PRN (Reason: Moderate pain or swelling) Qty: 60 RF: 0 oxycodone 5 mg tablet 5 - 10 mg PO Q4H PRN (Reason: moderate to severe pain) Qty: 22 RF: 0 Continued dextroamphetamine-amphetamine [Adderall XR] 10 mg capsule,extended release 24hr 10 mg PO DAILY RF: 0 melatonin 5 mg Tablet 5 mg PO DAILY RF: 0 Discontinued ibuprofen 600 mg tablet 600 mg PO QID PRN (Reason: pain) Qty: 20 RF: 0 Discharge Instructions Additional Instructions: Surgery: Shoulder arthroscopy with biceps tenodesis, extensive debridement, subacromial decompression, and distal clavicle excision. Activity: You should gradually increase range of motion motion and use of your shoulder. Please perform daily stretching exercises. You may use your shoulder for all regular activities. Avoid heavy lifting, reaching overhead, and lifting away from body for approximately 6 to 8 weeks. You may use the sling whenever you are out of the house for a few weeks. At home it is best to remove the sling and rest the arm on a pillow at your side or support the operative side with your other hand. A physical therapy prescription will be sent electronically to start in about 2 weeks. Prescriptions: Aspirin 81 mg take 1 daily to prevent a blood clot for 2 weeks Naproxen 250 mg take 1-2 every 12 hours with a meal as needed for moderate pain Oxycodone 5 mg take 1-2 every 4-6 hours as needed for severe pain You may use rklo-[id number] Tylenol (acetaminophen) as needed for mild pain. These pain medications may be taken all at once or in different combinations as needed. Also, recommend Colace (docusate) as a stool softener as surgery and pain medicine cause constipation. Dressings: Remove shoulder bandage after 3 days. Leave the sticky Steri-Strips in place until they fall off or remove them after you shower. Cover the in cisions with Band-Aids or leave them open to air. You may shower after 5 days. Follow-up: 10-[address] Luna You may take off the leg compression stockings this evening at home. You may also leave them on a few days longer if you have a history of leg swelling or edema. Let us know right away if you develop any redness, drainage, fevers, chest pain, or trouble breathing. Do not drink alcohol or drive for at least 24 hours after anesthesia. Please call the office during business hours with any questions or concerns. Referrals: Yogi Luna MD [ [facility] STAFF PHYSICIAN] - Discharge Orders Discharge Orders: Discharge Order (Routine); Ordered 02/11/21 Ordered By: Yogi Luna DS: Diagnosis Discharge Diagnosis (1) Separation of left acromioclavicular joint, type 2: Status: Acute (2) Superior labrum mvochuzb-ag-oyxecgdvy (SLAP) tear of left shoulder: Status: Acute (3) Biceps tendonitis on left: Status: Acute (4) Osteolysis of acromial end of left clavicle: Status: Acute
[2021-02-11] MEDS: EPINEPHrine 30 MG/30 ML VIAL (13:25)
--- NOTE | 2021-02-11 14:45 | W.ANESPOSTOP ---
Postoperative Evaluation Date, Time and Location Date Performed: 02/11/21 Time Performed: 14:45 Patient Location: PACU Vital Signs Most Recent Imported Vital Signs: Most Recent Vital Signs Temp Pulse Resp BP Pulse Ox 36.6 C 54 L 13 135/90 97 02/11/21 14:25 02/11/21 14:25 02/11/21 14:25 02/11/21 14:25 02/11/21 14:25 Pain Score Most Recent Pain Score: Most Recent Pain Score Pain Level 3 02/11/21 14:25 Assessment Mental Status: Awake (Alert & Oriented to Patient Baseline) Airway and Respiratory Function: Patent airway with normal (patient baseline) respiratory exam Cardiovascular Function: Hemodynamically Stable Hydration Status: Adequately Hydrated Nausea & Vomiting: No Nausea or Vomiting Pain: Pt. Denies Any Pain Peripheral Nerve Block: Regional nerve block not resolved at time of post operative discharge
== END 2021-02-11 16:11 | disposition home or self-care (01) ==
PROVIDERS: PCP Family Medicine; Visit Provider Student in an Organized Health Care Education/Training Program
PROC: (CPT 29805; principal; 2021-02-11 09:45)
PROC: (CPT 23430; 2021-02-11 09:45)
DX: M75.22 Bicipital tendinitis, left shoulder (principal); S42.432A Displaced fracture (avulsion) of lateral epicondyle of left humerus, initial encounter for closed fracture; M89.512 Osteolysis, left shoulder; S43.102S Unspecified dislocation of left acromioclavicular joint, sequela; X58.XXXS Exposure to other specified factors, sequela
CPT/HCPCS: 29828; 29824; 29823; 29826; J0131; J0690; J1100; J1885; J2001; J2250; J2405; J2704; J3010

== ENCOUNTER 2023-02-05 03:39 | Outpatient (CLI) | payer BC, SELFPAY ==
[2023-02-05 16:19] LABS: ALT 25 U/L (16-63); AST 22 U/L (15-37); Alkaline Phosphatase 67 U/L (46-116); Anion Gap 10.3 mmol/L (3-11); BUN 18 mg/dL (7-18); Bilirubin, Total 0.5 mg/dL (0.2-1.0); CO2 24.7 mmol/L (21.0-32.0); CREATININE 1.2 mg/dL (0.70-1.30); Calcium 9.1 mg/dL (8.5-10.1); Calculated LDL 116 mg/dL (<100); Chloride 103 mmol/L (98-107); Cholesterol 204 mg/dL (<200); Estimated GFR 80.88 (mL/min/1.73m2); Glucose 91 mg/dL (74-106); HDL Cholesterol 81 mg/dL (40-60); Potassium 3.8 mmol/L (3.5-5.1); Sodium 138 mmol/L (136-145); Total Protein 7.5 g/dL (6.4-8.2); Triglyceride 39 mg/dL (<150)
[2023-02-05 16:42] LABS: Vitamin D 25 Total 34.2 ng/mL (30-100)
== END 2023-02-05 03:40 | disposition home or self-care (01) ==
PROVIDERS: PCP Family Medicine; Visit Provider Family Medicine
DX: Z00.00 Encounter for general adult medical examination without abnormal findings (principal)
CPT/HCPCS: 36415; 80053; 80061; 82306